=== PATIENT | male | born 1995 | race Caucasian/White ===

== ENCOUNTER 2020-10-30 18:49 | Emergency (ER) | payer BC, MEDICAID ==
[~2020-10-30] VITALS: Ht 177.8 cm; Wt 78.0 kg
[2020-10-30 19:03] VITALS: BP 118/67
[2020-10-30] MEDS ORDERED: IBUPROFEN 200 MG TABLET PO ONE (20:30)
== END 2020-10-30 20:32 ==
LOC: ED 20:28
DX: S90.02XA Contusion of left ankle, initial encounter (principal); J45.909 Unspecified asthma, uncomplicated; X58.XXXA Exposure to other specified factors, initial encounter; Y93.89 Activity, other specified; Y92.89 Other specified places as the place of occurrence of the external cause; Y99.8 Other external cause status
CPT/HCPCS: 99283

== ENCOUNTER 2020-11-23 18:35 | Emergency (ER) | payer MEDICAID ==
[~2020-11-23] VITALS: Ht 177.8 cm; Wt 81.2 kg
--- NOTE | 2020-11-23 18:49 | NUR ---
IS ARCHITECT: NOT IN LOBBY X1
[2020-11-23 21:30] VITALS: BP 136/83
== END 2020-11-23 21:36 | disposition home or self-care (01) ==
LOC: ED 19:05
DX: M25.511 Pain in right shoulder (principal); J45.909 Unspecified asthma, uncomplicated; W18.30XA Fall on same level, unspecified, initial encounter; Y93.89 Activity, other specified; Y92.410 Unspecified street and highway as the place of occurrence of the external cause; Y99.8 Other external cause status
CPT/HCPCS: 99283